=== PATIENT | male | born 1990 | race Two or more races ===

== ENCOUNTER 2016-11-09 12:45 | Emergency (ER) | payer SELFPAY ==
--- NOTE | ~2016-11-09 | US85 ---
[facility] A Service of [facility] & [facility] RADIOLOGY TEXT RESULTS PATIENT: CAPO RHOADES LOCATION: CFTX : 88 UNIT #: [id number] AGE: [address]: Savage Martin SEX: M ORDER DR: [id number] [facility] [address] [place], [place] [address] [id number] MR#: [id number] Acc #: [id number] NAME: CAPO RHOADES : 1990 SEX: M STUDY DATE/TIME: 11/09/2016 14:09 UNIT: TX ROOM: STUDY DESCRIPTION: LE Veins Unilat or Ltd Stdy Attending Physician: Savage Martin Ordering Physician: Ed Doc Fiona Delgado Primary Care Physician: No Primary Care Physician MEDICAL IMAGING REPORT This report is preliminary unless electronic signature is present EXAM Right lower extremity venous duplex 11/09/2016 HISTORY Right lower extremity pain for 10 days, worsening in the last 3 days. Evaluate for deep vein thrombosis. TECHNIQUE Venous ultrasound examination of the right lower extremity was performed using grayscale, spectral Doppler and color flow Doppler imaging. FINDINGS The examination is negative. There is no evidence of right lower extremity deep venous thrombus from the groin to the lower calf. Visualized greater saphenous vein is also patent. IMPRESSION Negative examination. No evidence of right lower extremity deep venous thrombosis. Dictated by... Rodri Negro M.D. THIS IS AN ELECTRONICALLY VERIFIED REPORT Rodri Negro M.D. at 11/10/2016 7:46 AM AMADO/cuca TD: 11/09/2016 15:02 JOB #: [id number] MEDICAL IMAGING REPORT Page 1 of 1 COPY
== END 2016-11-09 14:05 | disposition home or self-care (01) ==
LOC: CFTX 12:45
DX: S83.91XA Sprain of unspecified site of right knee, initial encounter (principal); F17.210 Nicotine dependence, cigarettes, uncomplicated; X58.XXXA Exposure to other specified factors, initial encounter; Y92.9 Unspecified place or not applicable
CPT/HCPCS: 29530; 93971; 99284